=== PATIENT | male | born 1965 | race Caucasian/White ===

== ENCOUNTER 2017-03-30 13:37 | Emergency (ER) | payer OTHER ==
[~2017-03-30] VITALS: Ht 182.9 cm; Wt 127.0 kg
[~2017-03-30 13:37] MED LIST: AMLODIPINE BESY10 MG PO; ASPIRIN EC81 M1; BENICAR; BISOPROLOL FUMA10 MG; CELEXA; CELEXA 20 MG TA20 MG PO; CIPRO500 MG PO; CIPROFLOXACIN500 M1 PO; COZAAR 25 MG TA25 M2 PO; COZAAR 50 MG TA50 M1 PO; DAILY VITAMIN1 EAC5 PO; DEPO-TESTO100 MG/1 M IM; DEXILANT30 MG PO; DIABETA 5MG TABL5 MG PO; DILTIAZEM HCL90 MG; DIOVAN 80 MG TA80 M1 PO; DIURETIC; EXCEDRIN CAPLE1 EACH PO; FISH OIL 1,0001 EAC5; FISH OIL 1,001000 M1 PO; FLEXERIL PO; GLUCOPHAGE500 MG PO; GLUCOSAMINE &1 EAC1; GLUCOSAMINE CH1 EAC7 PO; HYDROCODONE-AP1 EAC6 PO; IBUPROFEN 800800 M1; IBUPROFEN 800800 M1 PO; MEDROLDOSEPACK PO; MULTIVITAMINS1 EAC7; NEXIUM40 MG PO; NORCO 5-325 TA1 EACH PO; ONDANSETRON HCL4 M2 PO; PREDNISONE 20 M20 M1 PO; PYRIDIUM100 M1 PO; TAMSULOSIN HCL0.4 M1 PER TUBE; TRAMADOL 50 MG50 MG PO; TRIBENZOR 40-11 EAC1 PO; VIAGRA50 MG PO; VICOPROFEN 2001 EACH PO; XANAX 0.25 MG0.25 MG PO; ZANTAC 150MG T150 M1 PO; ZIAC 10/6.25 MG10 MG PO
[2017-03-30] MEDS ORDERED: AVAPRO75 MG PO (13:43)
[2017-03-30] MEDS ORDERED: PRILOSEC 10MG C10 MG PO (13:43)
[2017-03-30] MEDS ORDERED: CHLORTHALIDONE25 MG PO (13:43)
[2017-03-30] MEDS ORDERED: KEFLEX500 M1 PO (14:23)
[2017-03-30 14:30] VITALS: BP 144/91
== END 2017-03-30 14:31 | disposition home or self-care (01) ==
LOC: M.ERS 13:37
DX: S60.450A Superficial foreign body of right index finger, initial encounter (principal); X58.XXXA Exposure to other specified factors, initial encounter; Y93.89 Activity, other specified; Y92.89 Other specified places as the place of occurrence of the external cause; Y99.8 Other external cause status; I10 Essential (primary) hypertension; Z87.442 Personal history of urinary calculi; E11.9 Type 2 diabetes mellitus without complications; Z90.89 Acquired absence of other organs; Z88.8 Allergy status to other drugs, medicaments and biological substances; Z88.0 Allergy status to penicillin

== ENCOUNTER 2019-03-10 15:37 | Emergency (ER) | payer OTHER ==
[~2019-03-10] VITALS: Ht 182.9 cm; Wt 113.4 kg
[~2019-03-10 15:37] MED LIST changes: +AVAPRO75 MG PO; +CHLORTHALIDONE25 MG PO; +KEFLEX500 M1 PO; +PRILOSEC 10MG C10 MG PO
[2019-03-10] MEDS ORDERED: PRILOSEC OTC20 MG PO (15:51)
[2019-03-10] MEDS ORDERED: TRULICITY0.75 MG/0. SQ (15:52)
[2019-03-10] MEDS ORDERED: MELOXICAM7.5 MG PO (15:53)
[2019-03-10 16:33] LABS: URINE BILIRUBIN NEGATIVE (Negative); URINE BLOOD NEGATIVE (Negative); URINE CLARITY CLEAR; URINE COLOR YELLOW; URINE GLUCOSE-RANDOM 3+ (Negative); URINE KETONES NEGATIVE (Negative); URINE LEUKOCYTES-REFLEX NEGATIVE (Negative); URINE NITRITE-REFLEX NEGATIVE (Negative); URINE PROTEIN NEGATIVE (Negative); URINE SPECIFIC GRAVITY 1.015 (1.005-1.030); URINE UROBILINOGEN 0.2 E.U./dl (0.2-1.0)
[2019-03-10 16:50] LABS: ABSOLUTE LYMPHOCYTES 1.1 thou/uL (0.8-5.3); ABSOLUTE MONOCYTES 0.5 thou/uL (0.0-1.2); ABSOLUTE NEUTROPHILS 6.9 thou/uL (1.6-8.1); BASOPHILS 0.4 %; EOSINOPHILS 0.1 %; HEMATOCRIT 44.2 % (42.0-52.0); HEMOGLOBIN 15.1 gm/dL (14.0-18.0); LYMPHOCYTES 13.3 %; MCH 28.2 pg (26.0-34.0); MCHC 34.3 g/dL (28.0-37.0); MCV 82.4 fL (80.0-100.0); MONOCYTES 6.1 %; MPV 7.4 fl. (7.2-11.1); NUCLEATED RBCS 0 /100WBC; PLATELET COUNT* 219 thou/uL (150-400); POLYS 80.1 %; RBC 5.36 mil/uL (4.50-6.00); RDW-CV 14.1 % (10.5-14.5); WBC 8.6 thou/uL (4.0-11.0)
[2019-03-10 16:54] LABS: CALCIUM 8.6 mg/dL (8.5-10.1); CREATININE 1.3 mg/dL (0.6-1.3)
[2019-03-10 16:58] LABS: ALBUMIN 3.8 g/dL (3.4-5.0); TOTAL BILIRUBIN 0.8 mg/dL (<0.1-1.0); TOTAL PROTEIN 7.5 g/dL (6.4-8.2)
[2019-03-10 17:09] LABS: INFLUENZA A ANTIGEN Negative (Negative); INFLUENZA B ANTIGEN Negative (Negative)
[2019-03-10 18:34] VITALS: BP 110/62
== END 2019-03-10 18:36 | disposition home or self-care (01) ==
LOC: M.ERS 15:37
PROVIDERS: Physician Assistant
DX: N20.0 Calculus of kidney (principal); K52.9 Noninfective gastroenteritis and colitis, unspecified; K80.80 Other cholelithiasis without obstruction; E87.6 Hypokalemia; E87.1 Hypo-osmolality and hyponatremia; I10 Essential (primary) hypertension; E11.9 Type 2 diabetes mellitus without complications; G89.29 Other chronic pain; F12.10 Cannabis abuse, uncomplicated; Z88.0 Allergy status to penicillin; Z88.1 Allergy status to other antibiotic agents; Z88.8 Allergy status to other drugs, medicaments and biological substances; Z90.89 Acquired absence of other organs; Z87.442 Personal history of urinary calculi

== ENCOUNTER 2020-12-12 09:52 | Emergency (ER) | payer OTHER ==
[~2020-12-12] VITALS: Ht 182.9 cm; Wt 113.4 kg
[~2020-12-12 09:52] MED LIST changes: +MELOXICAM7.5 MG PO; +PRILOSEC OTC20 MG PO; +TRULICITY0.75 MG/0. SQ
[2020-12-12 10:20] VITALS: BP 128/93
[2020-12-12] MEDS ORDERED: CELEBREX50 MG PO (10:26)
[2020-12-12] MEDS ORDERED: NEURONTIN100 MG PO (10:27)
[2020-12-12] MEDS ORDERED: CELEXA10 MG PO (10:27)
[2020-12-12] MEDS ORDERED: LANTUS SUBQ (10:28)
[2020-12-12] MEDS ORDERED: ZPAK PO (10:59)
== END 2020-12-12 23:07 | disposition home or self-care (01) ==
LOC: M.ERS 09:52
DX: H66.90 Otitis media, unspecified, unspecified ear (principal); I10 Essential (primary) hypertension; Z88.0 Allergy status to penicillin; Z88.1 Allergy status to other antibiotic agents; Z79.2 Long term (current) use of antibiotics; Z79.82 Long term (current) use of aspirin; Z90.89 Acquired absence of other organs; Z87.442 Personal history of urinary calculi